=== PATIENT | female | born 1945 | race Caucasian/White ===

== ENCOUNTER 2017-10-03 08:19 | Outpatient (CLI) | payer MEDICARE ==
--- NOTE | 2017-10-03 10:47 | MRI ---
MRI CERVICAL SPINE WITHOUT IV CONTRAST: Date: 10-03-17 History: Cervical radiculopathy. Patient started having right sided arm pain, unable to lift arm. FINDINGS: There is mild volume loss involving the visualized cerebellum. Cervical medullary junction is normal in appearance. There are scattered areas of increased T1 and T2 weighted signal intensity, probably related to focal areas of fat with probable small hemangioma versus focal fat within the T1 and T2 vertebral bodies. Prevertebral as well as paravertebral soft tissues are within normal limits. C2-3: No significant disc bulge or disc herniation. Central spinal canal and neural foramina are isaacs nt. C3-4: There is loss of intervertebral disc height. There is a broad based disc osteophyte complex. Th is narrows the ventral subarachnoid space. There is moderate left and moderate to severe right sided neural foraminal narrowing. C4-5: There is mild broad based disc osteophyte complex present. There is suggestion of calcification of the posterior and longitudinal ligament at the C4 and C5 levels. This narrows the ventral subarac hnoid space with very slight mass effect and flattening of the right anterolateral aspect of the spin al cord. There is mild to moderate left sided neural foraminal narrowing. There is mild right sided n eural foraminal narrowing. C5-6: There is a broad based disc osteophyte complex. This may ====== subarachnoid space with slight flattening of the anterior aspect of the spinal cord, but there is normal signal intensity at the spi nal cord at this level. There is moderate right and mild left sided neural foraminal narrowing. C6-7: There is loss of intervertebral disc height. Mild endplate degenerative changes are present. Th ere is a mild broad based disc osteophyte complex present at this level. There is minimal narrowing o f each neural foramen. There is mild narrowing of the central spinal canal and there is flattening of the central aspect of the anterior aspect of the spinal cord. Normal signal intensity is present in the spinal cord at this level. C7-T1: There is mild broad based disc osteophyte complex present. There is loss of intervertebral dis c height. There is mild effacement of the ventral subarachnoid space. Moderate left and mild to moder ate right sided neural foraminal narrowing are present. IMPRESSION: Multilevel degenerative changes with disc osteophyte complexes seen throughout the cervical spine as described above which results in varying degrees of neural foraminal narrowing. POS: [facility]
== END 2017-10-03 08:20 | disposition home or self-care (01) ==
LOC: TBSIIMAG 08:19
PROVIDERS: ATTEND Anesthesiology Pain Medicine
DX: M47.22 Other spondylosis with radiculopathy, cervical region (principal); M25.78 Osteophyte, vertebrae; M99.81 Other biomechanical lesions of cervical region
CPT/HCPCS: 72141

== ENCOUNTER 2017-10-07 09:38 | Outpatient (CLI) | payer MEDICARE ==
--- NOTE | 2017-10-07 13:09 | MRI ---
MRI OF THE RIGHT SHOULDER: Date: 10-07-17 Provided Clinical History: Right shoulder pain. FINDINGS: There is partial thickness undersurface tearing involving the distal conjoined tendon at the foot charlette te involving about 50% of tendon fiber thickness. Partial thickness undersurface tearing is also susp ected involving the cranial fibers of the subscapularis tendon. Associated medial subluxation of the long head biceps tendon may reflect bicipital sling injury. The teres minor tendon appears intact. There is signal alteration in the region of the superior labrum suspicious for SLAP tear with extensi on to involve the biceps anchor. There is articular cartilage loss involving the inferior aspects of the humeral head and opposing gle noid. There is marrow signal alteration within the humeral head that is presumably on the basis of re active change to the cartilage loss. An underlying lesion is not excluded but felt less likely. No ra diographic comparisons are available. Acromioclavicular joint osteoarthrosis is demonstrated without significant mass effect upon the subja cent supraspinatus. Signal alteration on fluid sensitive sequences and a patchy manner involves the infraspinatus and ter es minor muscles. Rotator cuff muscular volume appears preserved. The amount of fluid within the glenohumeral joint petra ears physiologic. There is greater than physiologic subacromial subdeltoid bursal fluid. IMPRESSION: 1. Partial thickness undersurface tear of the distal conjoined tendon at the footplate. 2. Partial thickness undersurface tear involving the cranial fibers of the subscapularis tendon with associated suspected bicipital sling injury. 3. SLAP tear with extension to involve the biceps anchor. 4. 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 Radiographic correlation is recommended to exclude a lesion. 3. Acromioclavicular joint osteoarthrosis. 4. Patchy signal alteration on fluid sensitive sequences involving infraspinatus and teres minor musc les may reflect denervation. 5. Greater than physiologic subacromial subdeltoid bursal fluid may reflect mild bursitis or an occul t full thickness component to one of the described rotator cuff tears. POS: [facility]
== END 2017-10-07 09:39 | disposition home or self-care (01) ==
LOC: TBSIIMAG 09:38
PROVIDERS: ATTEND Surgery
DX: S43.431A Superior glenoid labrum lesion of right shoulder, initial encounter (principal); M19.011 Primary osteoarthritis, right shoulder; S46.811A Strain of other muscles, fascia and tendons at shoulder and upper arm level, right arm, initial encounter

== ENCOUNTER 2018-05-04 14:57 | Outpatient (CLI) | payer MEDICARE | END 2018-05-04 14:58 | disposition home or self-care (01) | LOC: BVSM HT 14:57 → EDSTATUS 15:07 | PROVIDERS: ATTEND Orthopaedic Surgery Hand Surgery | DX: M65.342 Trigger finger, left ring finger (principal); M65.352 Trigger finger, left little finger; M66.242 Spontaneous rupture of extensor tendons, left hand | CPT/HCPCS: L3927-LT ==

== ENCOUNTER 2018-06-15 08:53 | Outpatient (CLI) | payer MEDICARE ==
[2018-06-15] MEDS ORDERED: ISOVUE-370 76%-LOCM 1 ML ONE (09:36)
--- NOTE | 2018-06-15 11:20 | CT ---
CT ABDOMEN PERFORMED WITH INTRAVENOUS CONTRAST ENHANCEMENT: History: Left sided abdominal pain. History of a lap band a few years ago which was subsequently aleyda rizwana. Comparison: CT 08-05-14. FINDINGS: The lung bases are clear. Hypodense lesion within the dome of the liver has CT Hounsfield unit numbers higher than typical for a cyst that is stable in size at approximately 2 cm and is, therefore, most likely still a benign les ion, probably a cyst with some complex features. The spleen is within normal limits of size. There is a hypodense mass along the inferior and medial border of the spleen and measures 1.9 cm, increasing since the previous 2015 study when it measured 1 cm. This is still most likely a benign etiology, pro bably a splenic hemangioma. The pancreas and gallbladder regions appear unremarkable. Right and left adrenal glands and right and left kidneys are normal in size. The right kidney is malr otated. No significant periaortic or mesenteric adenopathy. IMPRESSION: 1. Hypodense lesion within the some of the liver, most likely a cyst. Stable. 2. Increased slightly to a hyperdense mass involving the spleen, increasing from 1 cm on the 2015 neftali dy to a 1.9 cm on the current study. Most splenic lesions are still most likely a benign etiology. Th is may represent a hemangioma that is increased in size. 3. No signs of any acute intraabdominal abnormalities present. POS: [facility]
== END 2018-06-15 08:54 | disposition home or self-care (01) ==
LOC: BICCT 08:53
PROVIDERS: ATTEND Physician Assistant Medical
DX: R10.12 Left upper quadrant pain (principal); K21.9 Gastro-esophageal reflux disease without esophagitis; R11.0 Nausea; K83.8 Other specified diseases of biliary tract; K76.9 Liver disease, unspecified; D73.89 Other diseases of spleen
CPT/HCPCS: 74160; 82565; Q9966

== ENCOUNTER 2021-12-23 08:37 | Outpatient (CLI) | payer MEDICARE | END 2021-12-23 08:38 | disposition home or self-care (01) | LOC: RAD 08:37 | PROVIDERS: ATTEND Otolaryngology | DX: R13.10 Dysphagia, unspecified (principal); R63.30 Feeding difficulties, unspecified; K21.9 Gastro-esophageal reflux disease without esophagitis; R19.2 Visible peristalsis; Z20.822 Contact with and (suspected) exposure to COVID-19 | CPT/HCPCS: 74220; 74230; U0003; U0005 ==

== ENCOUNTER 2022-01-12 13:42 | Outpatient (CLI) | payer MEDICARE | END 2022-01-12 13:43 | disposition home or self-care (01) | LOC: BICCT 13:42 | PROVIDERS: ATTEND Anesthesiology Pain Medicine | DX: S22.060A Wedge compression fracture of T7-T8 vertebra, initial encounter for closed fracture (principal); M51.34 Other intervertebral disc degeneration, thoracic region; M25.78 Osteophyte, vertebrae; M51.36 Other intervertebral disc degeneration, lumbar region | CPT/HCPCS: 72128; 72131 ==

== ENCOUNTER 2024-02-21 07:02 | Day surgery (SDC) | payer MEDICARE ==
[2024-02-20 14:28] VITALS: BMI 40.2
[2024-02-21] MEDS ORDERED: Glycopyrrolate 0.2 MG/ML 5 ML SYRINGE ONE (08:30)
[2024-02-21] MEDS ORDERED: PROPOFOL 20 ML ONE ×2 (08:32→08:54)
[2024-02-21] MEDS ORDERED: Lidocaine 1% PF 5 ML VIAL ONE (09:02)
== END 2024-02-21 10:38 | disposition home or self-care (01) ==
LOC: SDC 07:02
PROVIDERS: ATTEND Internal Medicine Gastroenterology
PROC: 0D758ZZ Dilation of Esophagus, Via Natural or Artificial Opening Endoscopic (ICD-10-PCS; principal; 2024-02-21)
DX: R13.12 Dysphagia, oropharyngeal phase (principal); I48.91 Unspecified atrial fibrillation; E11.9 Type 2 diabetes mellitus without complications; Z79.84 Long term (current) use of oral hypoglycemic drugs; Z79.899 Other long term (current) drug therapy; Z91.040 Latex allergy status; Z88.5 Allergy status to narcotic agent; Z90.89 Acquired absence of other organs; Z86.0109 Personal history of other colon polyps; Z88.1 Allergy status to other antibiotic agents; Z88.8 Allergy status to other drugs, medicaments and biological substances
CPT/HCPCS: 43248; J2704